=== PATIENT | male | born 1945 | race African-American/Black ===

== ENCOUNTER → 2016-12-11 | Outpatient (CLI) | payer OTHER ==
[~2016-12-11] MED LIST: LOPRESSOR25 PO
== END ==
LOC: SLEEPLAB 12-08 06:43
DX: G47.33 Obstructive sleep apnea (adult) (pediatric) (principal)

== ENCOUNTER 2019-03-30 14:58 | Inpatient (IN) | payer OTHER ==
[~2019-03-30] VITALS: Ht 180.3 cm; Wt 88.3 kg
--- NOTE | ~2019-03-30 | EEG ---
[facility] [address] [place] [address] ELECTROENCEPHALOGRAM Name: BARBARA PICHARDO Room #: 210-P [facility] IN M.R.#: [id number] Admission: 03/30/19 Attend Phys: Hosea Mendez Discharge: Date of : 43 Report #: [id number] THIS REPORT FOR: //name// CC: Yuan Schumacher DATE OF SERVICE: 04/04/2019 This patient is being evaluated for an episode of syncope. EEG was done to evaluate the possibility of seizure. EEG was done by placing the electrode by standard 10-20 system of electrode placement. Both referential and sequential montages were used for recording. Background activity in this patient's EEG is about 9 Hz and 30 microvolts. The patient went to sleep that is associated with bilateral slowing and vertex sharp waves. Photic stimulation is unremarkable. Throughout the record, no active epileptiform activity was noticed. IMPRESSION: This patient's EEG is intermixed with some theta range slowing on both sides. That is a nonspecific abnormality, which can occur with drowsiness, effect of psychotropic medication, dementia, etc. No active epileptiform activity was noticed during this record. It might be mentioned EEG can be normal in a patient with seizure disorder and hence clinical correlation and further workup can be done as clinically indicated. By: [id number] Helio Friedman MD /nt
--- NOTE | ~2019-03-30 | HC ---
[facility] [place] [address] CONSULTATION Name: BARBARA PICHARDO Room #: 210-[facility] IN M.R.#: [id number] Admission: 03/30/19 Attend Phys: Hosea Schumacher Discharge: Date of : 43 Report #: [id number] THIS REPORT FOR: //name// CC: Yuan Schumacher CARDIOLOGY CONSULTATION HISTORY OF PRESENT ILLNESS: The patient is a 73-year-old -[place]wegian male. He was brought to the Emergency Room through EMS, found to have a possible syncopal event while working. 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 He was brought in hemodynamically stable, but hypertensive, 190 systolic initially noted. Some chest pain with some typical and atypical features. His is a better historian, states that he has certainly not been himself lately, more fatigued and also complains of a shuffling slow gait for the last 4-6 months. Longstanding hypertension, hypercholesterolemia. He has never had any cardiac procedures or history. There is no significant family history of premature coronary disease. His medications are amlodipine 5 and atorvastatin 10. EKG has some nonspecific changes and may be consistent with LVH. PAST MEDICAL HISTORY: Positive for hypertension, hypercholesterolemia, an open abdominal aortic aneurysm repair in [place] in 1986, orthopedic surgery to his right leg, DJD and now with some progressive slow shuffling gait and prostate cancer treated late 2017 or early 2018 with radiation and hormone therapy. SOCIAL HISTORY: He is , 2 children. No alcohol or tobacco. He still works. FAMILY HISTORY: Negative for premature coronary disease. REVIEW OF SYSTEMS: Negative except for some nocturia which persist and this worsening gait disturbance. LABORATORY WORK: Potassium 3.5, creatinine 2.5. H and H 13 and 41, no white count. UA had 1+ protein, negative for any bacteria. Troponin was 1.47 and 1.72. Chest x-ray had borderline enlargement with mild pulmonary venous engorgement and a question of left upper lobe infiltrate. PHYSICAL EXAMINATION: GENERAL: He seems alert. VITAL SIGNS: Blood pressure is 170/90, pulse is 80s. HEENT: Eyes reveal xanthelasmas. Pharynx is clear. NECK: Shows preserved upstrokes without JVD or bruits. LUNGS: Clear. [facility] [address] [place] [address] CONSULTATION Name: BARBARA PICHARDO Room #: 210-P [facility] IN M.R.#: [id number] Admission: 03/30/19 Attend Phys: Hosea Schumacher Discharge: Date of : 43 Report #: [id number] CARDIOVASCULAR: Regular rate and rhythm, S1, S2. There is no significant murmur or gallop. ABDOMEN: Soft. There is a prior well-healed incision. Bowel sounds are noted. EXTREMITIES: Reveal trace of nonpitting edema. NEUROLOGIC: Intact. I did not ambulate him. MUSCULOSKELETAL: Generalized arthritic changes. SKIN: Warm and dry without xanthoma or ulcer. ASSESSMENT: 1. Syncopal event. 2. Non-ST elevation myocardial infarction with elevated troponin. 3. Hypertension with significant left ventricular hypertrophy, preliminary on echo. 4. Hypercholesterolemia. 5. Question of left upper lobe infiltrate. 6. Chronic kidney disease. RECOMMENDATIONS AND PLAN: Discussed with the family. We will hold on any intervention, although the troponin 1.7 concerning slightly, could have some troponin elevation based on his LVH, his age and his kidney function, but this may well represent ischemic event. He was seen by Nephrology 5-6 years ago. He used to consult them and the same group would have some records on him. We will obtain renal ultrasound, nuclear stress test today. Preliminarily, the echo has LVH and mild global hypokinesis. We will discuss with Dr. Schumacher and Nephrology. No current intervention. He is pain free and not unstable. We will need to improve blood pressure control but RAFI and ARBs would be off the table right now. We will increase Norvasc to 10. We will add Bystolic 10, Aldactone 25 and monitor creatinine, some IV fluids and await Nephrology input, nuclear stress test results. Thank you for asking me to assist in the care of this patient. By: [id number] /nt
[2019-03-30 14:59] VITALS: BP 178/82
[2019-03-30 15:42] LABS: HEMATOCRIT 41.5 % (42.0-52.0); HEMOGLOBIN 13.1 gm/dL (14.0-18.0); MCH 27.7 pg (26.0-34.0); MCHC 31.7 g/dL (28.0-37.0); MCV 87.3 fL (80.0-100.0); PLATELET COUNT 168 thou/uL (150-400); RBC 4.75 mil/uL (4.50-6.00); RDW 13.4 % (10.5-14.5); WBC 6.1 thou/uL (4.0-11.0)
[2019-03-30 15:51] LABS: CALCIUM 9.2 mg/dL (8.5-10.1); CREATININE 2.5 mg/dL (0.7-1.3); POTASSIUM 3.5 mmol/L (3.5-5.1)
[2019-03-30 16:05] LABS: TROPONIN-I 1.47 ng/mL (<0.06)
[2019-03-30 16:14] LABS: URINE BILIRUBIN NEGATIVE (Negative); URINE BLOOD 2+ (Negative); URINE CLARITY CLEAR; URINE COLOR YELLOW; URINE GLUCOSE-RANDOM* NEGATIVE (Negative); URINE KETONES NEGATIVE (Negative); URINE LEUKOCYTES-REFLEX NEGATIVE (Negative); URINE NITRITE-REFLEX NEGATIVE (Negative); URINE PROTEIN (DIPSTICK) 1+ (Negative)
[2019-03-30 16:21] LABS: AMP/METHAMP Negative (Negative); BARBITURATES Negative (Negative); BENZODIAZEPINES Negative (Negative); COCAINE Negative (Negative); METHADONE Negative (Negative); OPIATES Negative (Negative); PCP Negative (Negative)
[2019-03-30] MEDS ORDERED: NORVASC5 M1 PO (16:45)
[2019-03-30] MEDS ORDERED: LIPITOR10 MG PO (16:46)
[2019-03-30 16:49] LABS: SQUAMOUS 0-3 Few /LPF (0-3)
[2019-03-30 16:50] LABS: BACTERIA-REFLEX None Seen /HPF (None Seen); CASTS None Seen /LPF (None Seen); CRYSTALS None Seen /LPF (None Seen); URINE RBC 0-2 Rare /HPF (0-2); URINE WBC-REFLEX None Seen /HPF (0-5)
[2019-03-30 17:01] VITALS: BP 174/90
[2019-03-30 17:02] LABS: ABSOLUTE NEUTROPHILS 4.9 thou/uL (1.4-8.2); PLATELET ESTIMATE NORMAL
[2019-03-30 17:09] LABS: CHOLESTEROL 164 mg/dL (<200); HDL CHOLESTEROL 59 mg/dL (>40); LDL CHOLESTEROL 91 mg/dL (<100); TC:HDL 2.8 Ratio (Not establshd); TRIGLYCERIDE 74 mg/dL (<150); VLDL 15 mg/dL (<40)
[2019-03-30 17:30] VITALS: BP 183/89
[2019-03-30 18:30] VITALS: BP 154/92
--- NOTE | 2019-03-30 19:40 | NUR ---
PATIENT ARRIVED FROM ED, ORIENTED TO ROOM AND THE FLOOR. ST ON THE MONITOR AND VS CHARTED. DR NEWMAN NOTIFIED.
[2019-03-30 20:31] VITALS: BP 122/94
[2019-03-31 01:08] VITALS: BP 196/44
--- NOTE | 2019-03-31 03:27 | NUR ---
PT RESTING QUIETLY IN ROOM WITH SUPPORT AND CARE FROM SPOUSE AND SON, VSS, IV FLUIDS INFUSING IN L AC, NO C/O PAIN, ORIENTED TO ROOM AND POC, PT INCON'T OF BOWEL AND BLADDER, SCD'S PLACED BILATERLLY TO LE, WILL CON'T TO MONITOR PER PPOC.
[2019-03-31 03:32] VITALS: BP 195/83
[2019-03-31 05:30] LABS: ALBUMIN 3.1 g/dL (3.4-5.0); CALCIUM 8.5 mg/dL (8.5-10.1); CREATININE 2.4 mg/dL (0.7-1.3); PHOSPHORUS 4.1 mg/dL (2.5-4.9); POTASSIUM 3.3 mmol/L (3.5-5.1)
[2019-03-31 05:38] LABS: TROPONIN-I 1.72 ng/mL (<0.06)
[2019-03-31 08:00] VITALS: BP 172/94
--- NOTE | 2019-03-31 08:26 | 2DMMODE ---
[facility] [address] [place] [address] 2 D/M-MODE ECHOCARDIOGRAM Name: BARBARA PICHARDO Room #: 210-P ADM IN M.R.#: [id number] Admission: 03/30/19 Attend Phys: Hosea Tolentino Discharge: Date of : 44 Report #: [id number] THIS REPORT FOR: //name// APPROVED REPORT Study performed: 03/31/2019 06:41:40 EXAM: Comprehensive 2D, Doppler, and color-flow Echocardiogram Patient Location: Bedside Room #: 210 Status: routine BSA: 2.13 HR: 82 bpm BP: 195/83 mmHg Rhythm: Sinus arrhythmia Other Information Study Quality: Good Indications Syncope, elevated troponin. Hx: HTN 2D Dimensions RVDd: 31.45 mm IVSd: 17.00 (7-11mm) LVOT Diam: 21.21 (18-24mm) LVDd: 49.00 mm PWd: 17.00 (7-11mm) Ascending Ao: 36.36 (22-36mm) LVDs: 35.97 (25-40mm) Aortic Root: 39.00 mm Volumes Left Atrial Volume (Systole) Single Plane 4CH: 53.87 mL Single Plane 2CH: 66.50 mL LA ESV Index: 30.00 mL/m2 Aortic Valve AoV Peak Austin.: 1.64 m/s AO Peak Gr.: 10.70 mmHg LVOT Max P.79 mmHg LVOT Max V: 1.30 m/s [place] Vmax: 2.81 cm2 Mitral Valve E/A Ratio: 0.7 MV Decel. Time: 219.06 ms MV E Max Austin.: 0.55 m/s [facility] [address] [place] [address] 2 D/M-MODE ECHOCARDIOGRAM Name: BARBARA PICHARDO Room #: [address] [place] [address] IN [facility]#: [id number] Admission: 03/30/19 Attend Phys: Hosea Caballero Jun Discharge: Date of : 44 Report #: [id number] MV A Austin.: 0.77 m/s MV PHT: 63.53 ms IVRT: 128.03 ms Pulmonary Valve PV Peak Austin.: 1.32 m/s PV Peak Gr.: 7.02 mmHg Pulmonary Vein P Vein S: 0.64 m/s P Vein D: 0.42 m/s P Vein S/D Ratio: 1.52 Tricuspid Valve TR Peak Austin.: 2.42 m/s RAP Estimate: 5.00 mmHg TR Peak Gr.: 23.34 mmHg PA Pressure: 28.00 mmHg Left Ventricle The left ventricle is normal size. Moderate concentric left ventricular hypertrophy. Left ventricular systolic function is normal. LVEF is 55-60%. Mild diastolic dysfunction is present (impaired relaxation pattern). Right Ventricle The right ventricle is normal size. The right ventricular systolic function is normal. Atria The left atrium size is normal. The right atrium size is normal. Aortic Valve The aortic valve is normal in structure. Trace aortic regurgitation. There is no aortic valvular stenosis. Mitral Valve The mitral valve is normal in structure. Mild mitral regurgitation. Tricuspid Valve The tricuspid valve is normal in structure. Trace tricuspid regurgitation. Estimated PAP is 28mmHg. Pulmonic Valve The pulmonary valve is normal in structure. Trace pulmonic regurgitation. [facility] [place] [address] 2 D/M-MODE ECHOCARDIOGRAM Name: JENA PICHARDOL Room #: 210- ADM IN M.R.#: [id number] Admission: 03/30/19 Attend Phys: Hosea Tolentino Discharge: Date of : 44 Report #: [id number] Great Vessels Aortic root is mildly dilated at 3.9cm. The ascending aorta is normal in size. IVC is normal in size and collapses >50% with inspiration. Pericardium There is no pericardial effusion. <Conclusion> The left ventricle is normal size. Moderate concentric left ventricular hypertrophy. Left ventricular systolic function is normal. Mild diastolic dysfunction is present (impaired relaxation pattern). The right ventricle is normal size. The right ventricle is normal size. The left atrium size is normal. Trace aortic regurgitation. Mild mitral regurgitation. Trace tricuspid regurgitation. Estimated PAP is 28mmHg. <ELECTRONICALLY SIGNED> By: Elieser Lomeli MD 03/31/19825 5 5 Elieser Lomeli MD /GUILLERMO
--- NOTE | 2019-03-31 12:25 | NUR ---
PT WAS RESTLESS AND KEPT MOVING WHILE LEXISCAN BEING DONE ESPECIALLY AFTER SEVERAL MINUTES. UNABLE TO GET BP FOR ABOUT 10 MINUTES DUE TO EXCESSIVE MOTION. THEN AFTER TEST COMPLETED. PT BECAME VERY DIAPHORETIC AND UNRESPONSIVE. MONITOR SHOWED SR HR 60'S TO 80. STRONG RADIAL PULSE. PT LAYED BACK SUPINE MUCH POSSIBLE IN RECLINER. THEN BP 92/37. FABIAN CARVER CALLED. DR GALLO CAME AND ORDERED NS 500 CC BOLUS. 300 CC GIVEN. PT MOVED TO RM 18 AND CONTINUED TO MONITOR. SR AND STABLE BP. NO LONGER DIAPHORETIC AND FULLY ALERT.
[2019-03-31 16:00] VITALS: BP 155/76
--- NOTE | 2019-03-31 17:28 | EKG ---
[address] [employer] [place] [address] ELECTROCARDIOGRAM REPORT Name: BARBARA PICHARDO Room #: 210-P ADM IN M.R.#: [id number] Admission: 03/30/19 Attend Phys: Hosea Schumacher Discharge: Date of : 44 Report #: [id number] THIS REPORT FOR: //name// [facility] ED Test Date: 2019-03-30 Test Time: 15:20:46 Pat Name: BARBARA PICHARDO Department: Room: 210 Gender: M Can Piler: [place] : 1945 Requested By: Yeison Chao Order Number: [id number] MD: Jose Tang Measurements Intervals [place] Rate: 85 P: 6 DE: 149 QRS: -12 QRSD: 85 T: 100 QT: 358 QTc: 426 Interpretive Statements Sinus rhythm Frequent atrial premature complexes LVH with secondary repolarization abnormality Anterior Q waves, possibly due to LVH Compared to ECG 08/07/2010 15:51:12 Atrial premature complex(es) now present lateral T wave abnormality is less pronounced Electronically Signed On 03-31-2019 17:28:35 PARTS CONTROL CLERK by Jose Tang [email or web address] <ELECTRONICALLY SIGNED> By: Jose Tang MD, [facility] 03/31/19 1728 1520 1520 Jose Tang MD, [facility] /EPI
--- NOTE | 2019-03-31 17:52 | EKG ---
[address] [place] [address] ELECTROCARDIOGRAM REPORT Name: BARBARA PICHARDO Room #: 210-P ADM IN M.R.#: [id number] Admission: 03/30/19 Attend Phys: Hosea Schumacher Discharge: Date of : 43 Report #: [id number] THIS REPORT FOR: //name// [facility] Test Date: 2019-03-31 Test Time: 12:53:27 Pat Name: BARBARA PICHARDO Department: Room: 210 P Gender: M Segmental Paver Installer: Marine SOLORIO : 1945 Requested By: Hosea Schumacher Order Number: [id number] MD: Jose Tang Measurements Intervals [place] Rate: 60 P: 45 [place]: 149 QRS: 1 QRSD: 93 T: 135 QT: 421 QTc: 421 Interpretive Statements Sinus rhythm LVH with secondary repolarization abnormality Anterior Q waves, possibly due to LVH Compared to ECG 08/07/2010 15:51:12 Atrial premature complexes no longer present Electronically Signed On 03-31-2019 17:52:19 FIRMWARE MANAGER by Jose Tang [email or web address] <ELECTRONICALLY SIGNED> By: Jose Tang MD, [facility] 03/31/19 1752 1253 1253 Jose Tang MD, [facility] /EPI
--- NOTE | 2019-03-31 17:56 | NUR ---
ASSUMED CARE AT SHIFT CHANGE. ASSESMENT DOCUMENTED. BP ELEVATED THIS MORNING MEDICATED WITH SCHEDULLED MEDS. PATEINT HAD A SYNCOPAL EPISODE IN NUC MED TODAY, PLEASE READ THE NURSING NOTES. HE REMIANS INCONTENENT OF BOWEL AND BLADDAR. HE DENIES ANY DISCOMFORT BUT C/O GENERAL WEAKNESS. WILL CONTINUE WITH POC.
[2019-03-31 20:15] VITALS: BP 141/94
[2019-04-01] VITALS (7 sets, daily range): BP systolic 122–164; BP diastolic 68–93
[2019-04-01 04:31] LABS: ALBUMIN 2.8 g/dL (3.4-5.0); CALCIUM 8.3 mg/dL (8.5-10.1); CREATININE 2.6 mg/dL (0.7-1.3); POTASSIUM 3.3 mmol/L (3.5-5.1)
--- NOTE | 2019-04-01 04:42 | NUR ---
PT RESTING IN BED. REMAINS ON RA. SB/SR ON MONITOR. PT HAD NO SYNCOPAL EPISODES DURING SHIFT. NO C/O PAIN.
--- NOTE | 2019-04-01 09:54 | EKG ---
[address] [place] [address] ELECTROCARDIOGRAM REPORT Name: BARBARA PICHARDO Room #: 210-P ADM IN M.R.#: [id number] Admission: 03/30/19 Attend Phys: Hosea Schumacher Discharge: Date of : 43 Report #: [id number] THIS REPORT FOR: //name// [facility] Test Date: 2019-04-01 Test Time: 07:04:59 Pat Name: BARBARA PICHARDO Department: Room: 210 P Gender: M Allergist: RICHARD : 1945 Requested By: Petr Garnett Order Number: [id number] MD: Jose Tang Measurements Intervals [place] Rate: 53 P: 28 [place]: 148 QRS: -4 QRSD: 92 T: 70 QT: 441 QTc: 414 Interpretive Statements Sinus bradycardia LVH with secondary repolarization abnormality Anterior Q waves, possibly due to LVH Baseline wander in lead(s) V6 Compared to ECG 03/31/2019 12:53:27 No significant changes Electronically Signed On 04-01-2019 9:54:33 SWINE NUTRITIONIST by Jose Tang [email or web address] <ELECTRONICALLY SIGNED> By: Jose Tang MD, [facility] 04/01/19 0954 0704 0704 Jose Tang MD, [facility] /EPI
--- NOTE | 2019-04-01 14:05 | NUR ---
PATIENT ADMITTED TO HOSPITAL POST SYNCOPAL EPISODE. 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 HE WAS IN CAR WITH CARWORKERS WHEN EPISODE HAPPENED. PATIENT REPORTS CLIENT INSIGHTS CONSULTANT INDEPENDENT WITH ADLS. HE REPORTS HE DOES FEEL WEAKER SINCE IN HOSPITAL. PLAN THERAPY EVALS. PATIENT LIVES AT HOME WITH , ALL NEEDS ON ONE LEVEL AT HOME. HE HAS A SON WHO IS SUPPORTIVE. PCP DR PETR HODGE. GAVE INFORMATION FOR ADVANCE DIRECTIVE. CASEMGT FOLLOWING.
--- NOTE | 2019-04-01 17:07 | NUR ---
ASSUMED CARE OF PT AT SHIFT CHANGE. ASSESSMENTS CHARTED. MEDS GIVEN PER JUN. VSS. A&OX4. NO C/O PAIN. PT CONTINUES TO BE INCONTINENT OF B&B. PT/OT EVAL ORDERED. WILL CONTINUE TO MONITOR AND FOLLOW POC.
[2019-04-02 04:01] VITALS: BP 162/87
[2019-04-02 04:45] LABS: ALBUMIN 2.9 g/dL (3.4-5.0); CALCIUM 8.1 mg/dL (8.5-10.1); CREATININE 2.3 mg/dL (0.7-1.3); PHOSPHORUS 3.6 mg/dL (2.5-4.9); POTASSIUM 3.6 mmol/L (3.5-5.1)
--- NOTE | 2019-04-02 06:16 | NUR ---
ASSUMED PT CARE AT 1900. VSS. PT A&0X4. PT WALKED AROUND THE UNIT THIS SHIFT. PT IS STRONGER AND STEADY ON HIS FEET. NO RESPIRATORY DISTRESS, PT ON ROOM AIR, INCONTINENT STILL; FREQUENT BED CHANGES, PT IS STABLE, WAS SB ON THE MONITOR 48- 50s. NO COMPLAINTS OF DISCOMFORT, RESTED WELL ALL NIGHT, WILL CONTINUE TO MONITOR PER POC.
[2019-04-02 07:00] VITALS: BP 156/99
[2019-04-02 11:40] VITALS: BP 120/50
[2019-04-02 15:30] VITALS: BP 151/70
--- NOTE | 2019-04-02 18:30 | NUR ---
ASSESSMENT CHARTED. PT ALERT AND ORIENTED. NO CARDIAC OR RESPIRATORY DISTRESS NOTED. AMBULATED X2 THIS SHIFT. AT THE BEDSIDE. WILL CONTINUE TO MONITOR.
[2019-04-02 20:30] VITALS: BP 154/82
[2019-04-02 22:06] LABS: IgA 294 mg/dL (61-437); IgG 1118 mg/dL (700-1600); IgM 103 mg/dL (15-143)
--- NOTE | 2019-04-03 01:06 | NUR ---
ASSUMED CARE OF PT AT APPROX 0700. PT IS ALERT AND ORIENTED. MONITORED ON TELE, AND ABLE TO MAINTAIN 02 SAT >90. ASSESSMENT CHARTED. DENIES PAIN AND SOA. EVEN NON LABORED BREATHING. AT BEDSIDE. PT AND DENY ANY CURRENT QUESTIONS OR CONCERNS. NAD NOTED. WILL CONTINUE POC AND TO MONITOR PT.
[2019-04-03 04:46] VITALS: BP 161/81
[2019-04-03 04:46] LABS: ALBUMIN 2.7 g/dL (3.4-5.0); CALCIUM 8.3 mg/dL (8.5-10.1); CREATININE 2.3 mg/dL (0.7-1.3); PHOSPHORUS 3.5 mg/dL (2.5-4.9); POTASSIUM 3.6 mmol/L (3.5-5.1)
[2019-04-03 07:00] VITALS: BP 140/81
--- NOTE | 2019-04-03 08:35 | HC ---
[facility] [place] [address] [address] [place] [address] CONSULTATION Name: BARBARA PICHARDO Room #: 210-[facility] IN M.R.#: [id number] Admission: 03/30/19 Attend Phys: Hosea Schumacher Discharge: Date of : 43 Report #: [id number] THIS REPORT FOR: //name// CC: Yuan Schumacher DATE OF SERVICE: 03/31/2019 REASON FOR PRESENTATION: Not acting right. REASON FOR CONSULTATION: Elevated creatinine. HISTORY OF PRESENT ILLNESS: The patient is a 73-year-old with past medical history of hypertension. He was brought by his friend as he was not acting right. also reported that the patient has not been steady in the last few days. She also reported that he has not been as responsive as he used to be. There is no reported history of syncope; however, it is reported by the patient's friend that the patient had what seems to be near syncope. No reported chest pain or shortness of breath. No nausea or vomiting. No fever or chills. The patient presented to be further evaluated and was found to have an elevated creatinine. He was also found to be in hypertensive urgency. and the patient tell me that patient's blood pressure has been out of control. The patient is being considered for a cardiac catheterization; however, his creatinine was elevated mandating a Nephrology consultation. In talking further with the patient and his , he used to see another kidney doctor a few years ago, but they are not really sure about the patient's creatinine level. They cannot recall the name of the physician. He also had some major surgery on a major blood vessel down in [place] requiring thoracotomy per the patient. They are not really sure about the details of this event and they are not really sure if this was an aneurysm and whether it was ruptured or not. PAST MEDICAL HISTORY: 1. Hypertension. 2. Thoracotomy. 3. Chronic kidney disease. MEDICATIONS: 1. Amlodipine. 2. A cholesterol pill that the does not recall. SOCIAL HISTORY: He is retired. 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 No drug or alcohol abuse. FAMILY HISTORY: Significant for hypertension. REVIEW OF SYSTEMS: [facility] [address] [place] [address] CONSULTATION Name: BARBARA PICHARDO Room #: 210-P [facility] IN .R.#: [id number] Admission: 03/30/19 Attend Phys: Hosea Schumacher Discharge: Date of : 43 Report #: [id number] GENERAL: Significant for lethargy and weakness. CARDIOVASCULAR: No reported chest pain or shortness of breath; however, the patient did have what seems to be near syncope. PULMONARY: No cough or hemoptysis. GASTROINTESTINAL: No nausea or vomiting. GENITOURINARY: He is incontinent after his prostate cancer therapy. PAST SURGICAL HISTORY: 1. Thoracotomy. 2. Prostate radiotherapy. PHYSICAL EXAMINATION: VITAL SIGNS: Blood pressure was elevated at 193/80. The patient was afebrile. Pulse rate was 80. HEAD AND NECK: No jugular venous distention. No bruit or thyromegaly. CHEST: Thoracotomy scar on the left side. No crackles. CARDIOVASCULAR: Regular with no rub detected. ABDOMEN: Soft, nontender. LOWER EXTREMITIES: No edema. LABORATORY DATA: Reviewed. His creatinine is 2.5 from yesterday. IMPRESSION AND PLAN: 1. Chronic kidney disease with very longstanding history, previously had seen another cod clerk. 2. Presyncope. 3. Hypertension with hypertensive encephalopathy. 4. From the renal perspective, we need to obtain the patient's previous medical records to help us assess his previous renal function. 5. I will initiate chronic kidney disease workup. 6. Blood pressure control should be with thiazide diuretics and an angiotensin receptor tod or an angiotensin converting enzyme inhibitor when we stabilize his renal function. The patient is being considered for cardiac catheterization and I will hold on starting any of those medications at this point. Continue with his home medications including Norvasc and statin. Cardiology evaluation is in progress. 7. Risk of contrast-induced nephropathy was discussed with the patient and his . We will wait for the cardiac stress test to decide about further evaluation. <ELECTRONICALLY SIGNED> By: Terri Parisi MD 04/03/19 0835 0946 1140 Terri Parisi MD /nt
[2019-04-03 11:30] VITALS: BP 113/60
--- NOTE | 2019-04-03 17:05 | NUR ---
ASSESSMENT CHARTED. PT ALERT ANSD ORIENTED. SB ON TELE. DR MAYS NOTIFIED. NE ORDERS NOTED. UP IN THE CHAIR THIS SHIFT. NO CONCERNS AT THIS TIME. WILL CONTINUE TO MONITOR.
[2019-04-03 18:05] VITALS: BP 139/88
[2019-04-03 21:22] VITALS: BP 144/96
--- NOTE | 2019-04-04 03:29 | NUR ---
ASSUMED PT CARE AT 1900. VSSEXCOET HR WHICH HAS BEEN IN THE 40s ALL NIGHT ALTHOUGH OT REMAINS ASYMPTOMATIC. PT A&0X3. NO COMPLAINTS OF PAIN OR DISCOMFORT, UNEVENTFUL NOC SO FAR, WILL CONTINUE TO MONITOR
[2019-04-04 05:07] VITALS: BP 123/103
[2019-04-04 05:45] LABS: ALBUMIN 2.9 g/dL (3.4-5.0); CALCIUM 8.2 mg/dL (8.5-10.1); PHOSPHORUS 3.3 mg/dL (2.5-4.9); POTASSIUM 3.7 mmol/L (3.5-5.1)
[2019-04-04 06:00] VITALS: BP 158/83
[2019-04-04 06:01] VITALS: BP 158/83
[2019-04-04 10:00] VITALS: BP 133/95; BP 154/76; BP 173/74
[2019-04-04 13:07] LABS: KAPPA FREE LIGHT CHAINS 191.8 mg/L (3.3-19.4); KAPPA/LAMBDA RATIO 2.4 (0.26-1.65); LAMBDA FREE LIGHT CHAINS 79.8 mg/L (5.7-26.3)
--- NOTE | 2019-04-04 17:32 | NUR ---
spoke with patient and at bedside. Discussed post acute care. They prefer 5N for continuity of care if rehab needed. Therapy evals in process at this time no PT eval. discussed [facility] contracted skilled facilities. Reviewed Home health. casemgt following for dc planning.
[2019-04-04 18:19] VITALS: BP 154/84
[2019-04-04 19:09] LABS: GLOBULIN TOTAL 2.8 g/dL (2.2-3.9); M-SPIKE 0.4 g/dL (Not Observed)
[2019-04-04 19:37] VITALS: BP 155/75
--- NOTE | 2019-04-04 19:59 | NUR ---
ASSUMED CARE AT 7 AM, ALERT AND ORIENTED X4. DENIES ANY DISCOMFORT, BRADYCADIAC ALL DAY, BP 154/84 AFTER NEW MEDS GIVEN, EEG DONE, AND MRI. NO SYNCOPAL EPISODE REPORTED, AND WILL CONTINUE WITH POC.
[2019-04-05 04:00] VITALS: BP 168/86
--- NOTE | 2019-04-05 05:20 | NUR ---
A/O X 4. AT BEDSIDE.COMPLAIN OF CHEST PAIN DUE TO COUGHING.TYLENOL GIVEN.SLEEPING WHEN EVALUATED.ABLE TO OBTAIN ORDER FOR COUGH.PATIENT HAS BEEN BRADYCARDIC ALL NIGHT.ASYMPTOMATIC.NO SYNCOPAL EPISODE.POC CONTINUED.
[2019-04-05 08:00] VITALS: BP 156/93
[2019-04-05] MEDS ORDERED: MIRALAX17 GM PO (08:56)
[2019-04-05] MEDS ORDERED: HYDRALAZINE 5050 MG PO (08:56)
[2019-04-05] MEDS ORDERED: ALDACTONE50 MG PO (08:56)
[2019-04-05] MEDS ORDERED: NORVASC10 MG PO (08:56)
[2019-04-05] MEDS ORDERED: ASA81BEC PO (08:57)
[2019-04-05 12:05] VITALS: BP 136/58
--- NOTE | 2019-04-05 15:51 | NUR ---
PATIENT ACCEPTED TO ACUTE REHAB CLINICALLY. [facility].
[2019-04-05 16:06] VITALS: BP 118/61
--- NOTE | 2019-04-05 16:10 | NUR ---
PATIENT SEEN THIS DATE BY PAULA TAO NP WITH DR. JAMA MONSALVE. PATIENT IS A CANDIDATE FOR ACUTE REHAB. AUTHORIZATION REQUEST INITIATED THIS DATE. FIRST BED AVAILABILITY IS 04/07/19. AIRPORT SHUTTLE DRIVER INFORMED. THANK YOU FOR THIS REFERAL.
--- NOTE | 2019-04-05 16:19 | NUR ---
ASSUMED CARE AT SHIFT CHANGE, ALERT AND ORIENTED X4. VSS AND AFEBRILE. FAMILY AT BEDSIDE, AND PATIENT DENIES ANY DISCOMFORT. WAITING ON INSURENCE AUTH FOR REHAB. AND WILL CONTINUE WITH POC.
[2019-04-05 19:15] VITALS: BP 138/69
[2019-04-06 05:07] VITALS: BP 168/98
--- NOTE | 2019-04-06 05:53 | NUR ---
ASSUMED PATIENT CARE AT 1900, PATIENT ALERT AND ORIENTEDX4, DENIES PAIN, ASSESSMENTS CHARTED, DENIES NAUSEA AND VOMITING, DENIES COUGHING, NO CONCERNS VOICED AT THIS TIME, WILL CONTINUE TO MONITOR
[2019-04-06 07:42] VITALS: BP 172/87
--- NOTE | 2019-04-06 10:28 | NUR ---
AAOX4. CALM, PLEASANT. ADULT SON AND AT BEDSIDE. SPEECH SEES AND DOESN'T DISCERNE ANY ISSUES. OT HERE TO WORK WITH HIM NOW. SB/SR PER TELE. FALL PRECAUTIONS IN PLACE. HE HAS BEEN CHECKED AND HE IS NOT ORTHOSTATIC. INCONTINENT OF BOWEL AND BLADDER ONCE OVERNIGHT BUT HAS BEEN USING TWO URINALS APPROPRIATELY THIS A.M. TO 5N ONCE BED AVAILABLE.
[2019-04-06 11:50] VITALS: BP 150/65
--- NOTE | 2019-04-06 15:08 | NUR ---
PT IS ALERT X2. FORGETFULL AT BEDSIDE FOR SUPPORT. SITING UP IN THE CHAIR FOR MEALS. SINUS BRADYCARDIA ON THE MONIOTOR. LUNGS ARE CLEAR. BROUGHT HIS SLEEP MACHINE IN AND WANTING DR. GOLD TO TAKE A LOOK AT IT VOIDS PER UNRINAL. NO ISSUES OR CONCERNS NOTED. POSSIBLE TO GO TO REHAB UNIT
[2019-04-06 15:50] VITALS: BP 130/62
--- NOTE | 2019-04-06 15:53 | NUR ---
Faxed referral to [facility]. Spoke with Calista Rapp in Admissions. She received referral and will review. DP to follow.
[2019-04-06 21:12] VITALS: BP 144/69
--- NOTE | 2019-04-07 05:32 | NUR ---
ASSUMED PATIENT CARE AT 1900, PATIENT IS A&OX4, DENIES PAIN, TOOK MEDICATION WITHOUT DIFFICULTY, ASSESSMENT CHARTED, AT THE BEDSIDE, NO CONCERMNS AT THIS TIME, WILL CONTINUE TO MONITOR
[2019-04-07 05:48] VITALS: BP 175/78
[2019-04-07] MEDS ORDERED: CHLORTHALIDONE25 MG PO (10:18)
[2019-04-07 12:00] VITALS: BP 147/55
[2019-04-07 13:03] LABS: CALCIUM 9.7 mg/dL (8.5-10.1); CREATININE 2.2 mg/dL (0.7-1.3); POTASSIUM 4.4 mmol/L (3.5-5.1)
--- NOTE | 2019-04-07 13:33 | NUR ---
RECEIVED CALL FROM [facility] AT [facility] THIS PM. PATIENT WAS DECLINED BY INSURANCE FOR ACUTE REHAB STAY. [facility] WILL GIVE AUTH FOR LONGTERM STAY. PETRONA CAN GIVE AUTH TO SNF TODAY IF THEY CALL HIM (AFTER SNF CALLS MAIN LINE AND REQUESTS SNF AUTHORIZATION AND HAS PENDING AUTHORIZATION NUMBER). PETRONA'S NUMBER IS [phone]. THIS INFORMATION GIVEN TO DENNY JOURNEYMAN PRESS OPERATOR. THANK YOU FOR THIS REFERRAL.
--- NOTE | 2019-04-07 14:39 | NUR ---
Insurance denied 5N acute rehab request;however they did auth snf stay at [facility]. [facility] is arranging w/c van transport at 4pm. Care team, pt and spouse updated. Chart copy in progress and dc finished goods planner to fax the final orders.
--- NOTE | 2019-04-07 15:31 | NUR ---
ASSUMED CARE AT 1245, ALERT AND ORIENTED X4. DISCHARGE AND MEDICATION INSTRUCTIONS GIVEN TO PATIENT AND FAMILY. PATIENT IS GOING TO BE DISCHARGED TO [facility] AND REPORT WAS GIVEN TO NURSE LIZZY. WAITING FOR TRANSPORTATION.
--- NOTE | 2019-04-07 15:42 | NUR ---
PATIENT DISCHARGING TODAY TO [facility]. FAXED DC ORDERS AND DC SUMMARY TO FACILITY. SPOKE WITH CIERRA. SHE RECEIVED DC ORDERS AND ARRANGED TRANSPORT BY VAN FOR 16:00. AT BEDSIDE NOTIFIED OF TRANSPORTATION AND DC BY NURSE. UNIT NOTIFIED AND CHART COPY COMPLETED BY US. NURSE TO CALL REPORT TO [phone].
== END 2019-04-07 16:08 | DRG 280 ==
LOC: ER 14:58 → 2N 16:40 → EROBS 16:40 → 2N 17:30
PROVIDERS: Emergency Medicine; Hospitalist; ADMIT Hospitalist
DX: R55 Syncope and collapse (principal); I21.4 Non-ST elevation (NSTEMI) myocardial infarction; I63.9 Cerebral infarction, unspecified; N17.9 Acute kidney failure, unspecified; I67.4 Hypertensive encephalopathy; E78.00 Pure hypercholesterolemia, unspecified; E78.5 Hyperlipidemia, unspecified; G47.33 Obstructive sleep apnea (adult) (pediatric); I16.0 Hypertensive urgency; E87.6 Hypokalemia; R32 Unspecified urinary incontinence; I71.4 Abdominal aortic aneurysm, without rupture; N18.3 Chronic kidney disease, stage 3 (moderate); I25.10 Atherosclerotic heart disease of native coronary artery without angina pectoris; G47.00 Insomnia, unspecified; I12.9 Hypertensive chronic kidney disease with stage 1 through stage 4 chronic kidney disease, or unspecified chronic kidney disease; R00.1 Bradycardia, unspecified; T50.905A Adverse effect of unspecified drugs, medicaments and biological substances, initial encounter; Y92.89 Other specified places as the place of occurrence of the external cause; Z82.49 Family history of ischemic heart disease and other diseases of the circulatory system; Z85.46 Personal history of malignant neoplasm of prostate; Z92.3 Personal history of irradiation; Z28.21 Immunization not carried out because of patient refusal
CPT/HCPCS: 10081

== ENCOUNTER 2019-05-22 14:22 | Emergency (ER) | payer OTHER ==
[~2019-05-22] VITALS: Ht 180.3 cm; Wt 85.7 kg
[~2019-05-22 14:22] MED LIST changes: +ALDACTONE50 MG PO; +ASA81BEC PO; +CHLORTHALIDONE25 MG PO; +HYDRALAZINE 5050 MG PO; +LIPITOR10 MG PO; +MIRALAX17 GM PO; +NORVASC10 MG PO; +NORVASC5 M1 PO
[2019-05-22 15:31] LABS: ABSOLUTE NEUTROPHILS 4.6 thou/uL (1.4-8.2); BASOPHILS 0.5 % (0.0-2.0); EOSINOPHILS 1.5 % (0.0-3.0); HEMATOCRIT 35.9 % (42.0-52.0); HEMOGLOBIN 11.4 gm/dL (14.0-18.0); LYMPHOCYTES 12.2 % (24.0-44.0); MCH 28.1 pg (26.0-34.0); MCHC 31.6 g/dL (28.0-37.0); MCV 88.7 fL (80.0-100.0); MONOCYTES 9.7 % (1.0-8.0); PLATELET COUNT 222 thou/uL (150-400); POLYS 76.1 % (36.0-66.0); RBC 4.05 mil/uL (4.50-6.00); RDW 13.5 % (10.5-14.5)
[2019-05-22 15:47] LABS: CALCIUM 8.9 mg/dL (8.5-10.1); CREATININE 2.7 mg/dL (0.7-1.3); POTASSIUM 4.2 mmol/L (3.5-5.1)
[2019-05-22 15:57] LABS: ALBUMIN 3.9 g/dL (3.4-5.0); TOTAL BILIRUBIN 0.4 mg/dL (<0.1-1.0); TOTAL PROTEIN 7.9 g/dL (6.4-8.2); TROPONIN-I 0.25 ng/mL (<0.06)
[2019-05-22 17:00] VITALS: BP 160/66
--- NOTE | 2019-05-23 07:53 | EKG ---
[place] [address] [facility] [place] [address] ELECTROCARDIOGRAM REPORT Name: BARBARA PICHARDO Room #: [facility]P [facility] [id number] Admission: 05/22/19 Attend Phys: Discharge: 05/22/19 Date of : 43 Report #: [id number] THIS REPORT FOR: //name// [facility] ED Test Date: 2019-05-22 Test Time: 14:34:58 Pat Name: BARBARA PICHARDO Department: Room: Gender: M Religious Activities Director: ina : 1945 Requested By: Freddy Ibrahim Order Number: [id number] MD: Jose Tang Measurements Intervals [place] Rate: 70 P: 50 NC: 154 QRS: -2 QRSD: 107 T: 64 QT: 464 QTc: 501 Interpretive Statements Sinus rhythm Left ventricular hypertrophy Anterior Q waves, possibly due to LVH Nonspecific T abnormalities, lateral leads Prolonged QT interval Compared to ECG 04/01/2019 07:04:59 No significant change was found Electronically Signed On 05-23-2019 7:52:22 MDS COORDINATOR by Jose Tang [email or web address] <ELECTRONICALLY SIGNED> By: Jose Tang MD, [facility] 05/23/19 [id number] Jose Tang MD, [facility] /EPI
== END 2019-05-22 18:14 | disposition home or self-care (01) ==
LOC: ER 14:22
PROVIDERS: Emergency Medicine
DX: R55 Syncope and collapse (principal); I10 Essential (primary) hypertension; E78.5 Hyperlipidemia, unspecified; Z85.46 Personal history of malignant neoplasm of prostate

== ENCOUNTER → 2019-11-24 | Outpatient (CLI) | payer OTHER | LOC: SJCVC 13:04 | PROVIDERS: ATTEND Internal Medicine Cardiovascular Disease | DX: R00.1 Bradycardia, unspecified (principal); I13.10 Hypertensive heart and chronic kidney disease without heart failure, with stage 1 through stage 4 chronic kidney disease, or unspecified chronic kidney disease; N18.9 Chronic kidney disease, unspecified; R94.31 Abnormal electrocardiogram [ECG] [EKG]; I25.10 Atherosclerotic heart disease of native coronary artery without angina pectoris; E78.00 Pure hypercholesterolemia, unspecified; R55 Syncope and collapse; I63.81 Other cerebral infarction due to occlusion or stenosis of small artery; G47.33 Obstructive sleep apnea (adult) (pediatric); E78.5 Hyperlipidemia, unspecified; Z79.82 Long term (current) use of aspirin; Z79.899 Other long term (current) drug therapy ==

== ENCOUNTER → 2020-01-30 | Outpatient (CLI) | payer OTHER | LOC: SJCVCIMAG 07:23 | PROVIDERS: ATTEND Internal Medicine Cardiovascular Disease | DX: I49.3 Ventricular premature depolarization (principal); I25.10 Atherosclerotic heart disease of native coronary artery without angina pectoris; I12.9 Hypertensive chronic kidney disease with stage 1 through stage 4 chronic kidney disease, or unspecified chronic kidney disease; N18.9 Chronic kidney disease, unspecified; Z79.899 Other long term (current) drug therapy ==

== ENCOUNTER → 2020-05-04 | Outpatient (CLI) | payer OTHER | LOC: SJCVCIMAG 11:38 | PROVIDERS: ATTEND Internal Medicine Cardiovascular Disease | DX: I25.10 Atherosclerotic heart disease of native coronary artery without angina pectoris (principal); R09.89 Other specified symptoms and signs involving the circulatory and respiratory systems; R94.31 Abnormal electrocardiogram [ECG] [EKG]; E78.00 Pure hypercholesterolemia, unspecified; G47.33 Obstructive sleep apnea (adult) (pediatric); I63.9 Cerebral infarction, unspecified; I13.10 Hypertensive heart and chronic kidney disease without heart failure, with stage 1 through stage 4 chronic kidney disease, or unspecified chronic kidney disease; N18.9 Chronic kidney disease, unspecified; Z79.82 Long term (current) use of aspirin; Z79.899 Other long term (current) drug therapy ==

== ENCOUNTER → 2020-10-30 | Outpatient (CLI) | payer OTHER | LOC: SJCVC 14:34 | PROVIDERS: ATTEND Internal Medicine Cardiovascular Disease | DX: R94.31 Abnormal electrocardiogram [ECG] [EKG] (principal); I25.10 Atherosclerotic heart disease of native coronary artery without angina pectoris; E78.00 Pure hypercholesterolemia, unspecified; G47.33 Obstructive sleep apnea (adult) (pediatric); I13.10 Hypertensive heart and chronic kidney disease without heart failure, with stage 1 through stage 4 chronic kidney disease, or unspecified chronic kidney disease; N18.30 Chronic kidney disease, stage 3 unspecified; E78.5 Hyperlipidemia, unspecified; Z79.82 Long term (current) use of aspirin; Z79.899 Other long term (current) drug therapy; Z57.31 Occupational exposure to environmental tobacco smoke ==